=== PATIENT | male | born 1950 | race Caucasian/White ===

== ENCOUNTER 2016-07-04 19:59 | Emergency (ER) | payer MEDICARE, BC ==
[~2016-07-04] VITALS: Ht 182.9 cm; Wt 138.9 kg
[~2016-07-04 19:59] MED LIST: ADVI200C9; ASPI325T; ATOR20TA42; CARD4TAB2; HYZA100T4; XANA0.5T2
[2016-07-04 20:02] VITALS: BP 170/83; PULSE 96; RESP 16; TEMP 97.8; O2SAT 100
[2016-07-04] MEDS ORDERED: AMLO10TA2 PO (20:17)
[2016-07-04] MEDS ORDERED: ASPI81CH CHEW (20:17)
[2016-07-04] MEDS ORDERED: OLME1TAB5 PO (20:17)
[2016-07-04] MEDS ORDERED: MELO7.5T4 PO (20:17)
[2016-07-04] MEDS ORDERED: TETANUS/DIPHTHERIA TOXOID ADULT 0.5 ML VIAL IM ONE (20:30)
--- NOTE | 2016-07-04 20:37 | PD ---
HPI Chief Complaint: Laceration/Skin Injury Time Seen by Provider: 20:29 Travel History International Travel<30 days: No Contact w/Intl Traveler<30days: No Traveled to known affect area: No History of Present Illness HPI 66-year-old male presents to the emergency room for evaluation of a laceration to his left second finger that occurred yesterday afternoon. Patient was working on a boat when the jacquelin broke and the axle dropped on top of his finger. It crushed his finger between the axilla on the concrete. He states he was immediately able to bend the finger and doesn't believe that it is broken. He dressed the wound. This morning when his changed the dressing , she cannot get the bleeding to stop so she applied a pressure dressing. Patient has had rash or dressing in place since then. 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 Unknown last tetanus. Patient takes baby aspirin daily. PFSH Past Medical History Anxiety: Yes High Cholesterol: Yes Hypertension: Yes ?: Not Past Surgical History Neurologic Surgery: Yes (SPINAL SURGERY) Tonsillectomy: Yes Social History Alcohol Use: No Tobacco Use: No Substance Use: No Allergies-Medications (Allergen,Severity, Reaction): Coded Allergies: Penicillin (Verified Allergy, Severe, 07/04/16) Reported Meds & Prescriptions Reported Meds & Active Scripts Active Keflex (Cephalexin) 250 Mg Cap 500 Mg PO Q6H 10 Days Reported Aspirin 81 Mg Chew 81 Mg CHEW DAILY Meloxicam 7.5 Mg Tab 15 Mg PO DAILY Amlodipine (Amlodipine Besylate) 10 Mg Tab 10 Mg PO DAILY Olmesartan-Hydrochlorothiazide 20-12.5 Mg Tab Unknown Dose PO DAILY Review of Systems Except as stated in HPI: all other systems reviewed are Neg Physical Exam Narrative GENERAL: Well-nourished, well-developed male in no acute distress. Afebrile. Ambulatory. SKIN: Focused skin assessment warm/dry. There is a large 4 cm laceration/skin flap extending vertically on the dorsal second finger of the left hand. Nail bed is affected. The skin flap is extremely macerated. HEAD: Normocephalic. EYES: No scleral icterus. No injection or drainage. NECK: Supple, trachea midline. No JVD or lymphadenopathy. CARDIOVASCULAR: Regular rate and rhythm without murmurs, gallops, or rubs. RESPIRATORY: Breath sounds equal bilaterally. No accessory muscle use. EXTREMITY: Left second digit mildly tender to palpation. 2 point discrimination is not intact. The left second digit is moderately edematous. No bony tenderness to palpation. Capillary refill delayed. Data Data Last Documented VS Vital Signs Date Time Temp Pulse Resp B/P Pulse Ox O2 Delivery O2 Flow Rate FiO2 07/04/16 20:02 97.8 96 16 170/83 100 Orders Tetanus/Diphtheria Tox Adult (Tetanus/Di (07/04/16 20:30) Finger ([id number]) (07/04/16 ) Wound Care (07/04/16 21:26) MDM Medical Decision Making Medical Screen Exam Complete: Yes Emergency Medical Condition: Yes Medical Record Reviewed: Yes Differential Diagnosis Abrasion versus fracture versus crush injury Narrative Course 66-year-old right handed male presents to the emergency room for evaluation of a left second finger laceration/skin flap after crush injury that occurred 30 hours ago. Patient is past the safe laceration repair time period. Physical exam reveals a for similar skin flap on the left dorsal second finger. The nailbed is involved. The skin is extremely macerated from being dressed for the past several hours. Upon poking the skin with the needle, a small amount of blood can be seen. Patient has history of a sensation due to neck injury so 2 point discrimination is not currently intact. X-ray of the finger shows distal tuft fracture. Tetanus updated. I spoke to the hand surgeon recreation superintendent, Dr. Calderon, who recommends dry dressing, antibiotic prophylaxis, and follow up as needed. Patient was placed in a dressing in the emergency room and discharged with prescription for Keflex. He was told to follow up with a hand surgeon or return for worsening symptoms. He understands and agrees to plan. Diagnosis Primary Impression: Crushing injury of left index finger Qualified Code: S67.191A - Crushing injury of left index finger, initial encounter Referrals: James Godinez MD Primary Care Physician Patient Instructions: Crush Injury (ED), General Instructions Additional Instructions: Rest and drink plenty of fluids. Keep wound clean and dry. Apply triple antibiotic ointment daily. Take Keflex as directed, until gone. Apply ice to the affected area for 20 minutes at a time, as needed for pain and swelling. Follow-up with hand surgeon next week. Return to the emergency room for wound recheck in 1-2 days. Med/Other Pt SpecificInfo: Prescription(s) given Scripts Cephalexin (Keflex)250 Mg [id number] Mg PO Q6H 10 Days Ref 0 Prov:Lizet Hilliard MD 07/04/16 Disposition: 01 DISCHARGE HOME Condition: Stable Viki Castillo July 04, 2016 20:37
--- NOTE | 2016-07-04 20:59 | RADHPO ---
EXAM DATE/TIME: 07/04/2016 20:34 [facility] COMPARISON: No previous studies available for comparison. INDICATIONS : Multiple left hand, second digit lacerations. MEDICAL HISTORY : None. SURGICAL HISTORY : Tonsillectomy. ENCOUNTER: Initial ACUITY: 1 day PAIN SCORE: 0/10 LOCATION: Left upper extremity FINDINGS: Multiple views of the left second finger reveal a tuft fracture. Soft tissue swelling noted. No radio paque foreign body. CONCLUSION: Acute tuft fracture. Villa Enriquez Jr., MD on July 04, 2016 at 20:57 Board Certified Radiologist. This report was verified electronically.
[2016-07-04] MEDS ORDERED: CEPH-459 PO (21:25)
== END 2016-07-04 21:45 | disposition home or self-care (01) ==
LOC: PHEFT 19:59
DX: S67.191A Crushing injury of left index finger, initial encounter (principal); F41.9 Anxiety disorder, unspecified; I10 Essential (primary) hypertension; E78.00 Pure hypercholesterolemia, unspecified; W23.0XXA Caught, crushed, jammed, or pinched between moving objects, initial encounter; Z79.82 Long term (current) use of aspirin; Z23 Encounter for immunization; Z79.899 Other long term (current) drug therapy; Z88.0 Allergy status to penicillin
CPT/HCPCS: 73140; 90471; 90714

== ENCOUNTER 2017-10-31 18:06 | Inpatient (IN) ==
[2017-10-31] MEDS ORDERED: Sod Chloride 0.9% Inj 1,000 ML IV.SIG ONE (18:27)
[2017-10-31] MEDS ORDERED: HYDROmorphone PF Inj 0.5 MG/0.5 ML Syringe IV.PUSH SCH ×2 (18:30→21:45)
[2017-10-31 18:54] LABS: Baso # (Auto) 0.5 th/mm3 (0.0-0.2); Baso % (Auto) 3.6 % (0.0-2.0); Eos % (Auto) 0.3 % (0.0-4.0); Hematocrit 43.3 % (39.0-51.0); Hemoglobin 15.1 gm/dL (13.0-17.0); Lymph # (Auto) 1.6 th/mm3 (1.0-4.8); Lymph % (Auto) 12.4 % (9.0-44.0); Mean Corpuscular HGB Conc 34.7 % (32.0-36.0); Mean Corpuscular Hemoglobin 30.4 pg (27.0-34.0); Mean Corpuscular Volume 87.4 fL (80.0-100.0); Mean Platelet Volume 9.1 fL (7.0-11.0); Mono # (Auto) 0.9 th/mm3 (0.0-0.9); Mono % (Auto) 6.8 % (0.0-8.0); Neut # (Auto) 9.7 th/mm3 (1.8-7.7); Neut % (Auto) 76.9 % (16.0-70.0); Platelet Count 141 th/mm3 (150-450); Red Blood Count 4.95 mil/mm3 (4.50-5.90); Red Cell Distribution Width 13.5 % (11.6-17.2); White Blood Count 12.7 th/mm3 (4.0-11.0)
[2017-10-31 19:02] LABS: Chloride 110 meq/L (98-107); Potassium 4.1 meq/L (3.5-5.1); Sodium 143 meq/L (136-145)
[2017-10-31 19:05] LABS: Albumin 4.1 g/dL (3.4-5.0); Anion Gap 9 meq/L (5-15); Calcium 10.8 mg/dL (8.5-10.1); Carbon Dioxide 24.1 meq/L (21.0-32.0); Glucose,Random 113 mg/dL (74-106); Lipase 150 U/L (73-393)
[2017-10-31 19:06] LABS: Blood Urea Nitrogen 16 mg/dL (7-18)
[2017-10-31 19:07] LABS: Activated Partial Thrombo Time 23.5 sec (24.3-30.1); INR 1.1 Ratio; Prothrombin Time 10.8 sec (9.8-11.6)
[2017-10-31 19:08] LABS: Alanine Aminotransferase 37 U/L (12-78); Aspartate Aminotransferase 28 U/L (15-37)
[2017-10-31 19:09] LABS: Glomerular Filtration Rate 50 mL/min (>89)
[2017-10-31 19:10] LABS: Total Protein 7.3 g/dL (6.4-8.2)
[2017-10-31 19:11] LABS: Alkaline Phosphatase 65 U/L (45-117)
[2017-10-31] MEDS ORDERED: HYDROmorphone PF Inj 2 MG/ML Vial IV.PUSH ONE (19:45)
--- NOTE | 2017-10-31 19:45 | ED ---
HPI General Chief complaint: Abdominal Pain Stated complaint: Abd Pain Time Seen by Provider: 10/31/17 18:15 Source: patient and RN notes reviewed Mode of arrival: ambulatory History of Present Illness HPI narrative: 67yM presenting with abdominal pain. The patient states that around 2 PM he was sitting and watching TV when he began to have sudden-onset right lower quadrant/ midline abdominal pain which he describes as "like someone kicked me", constant, severe, non-radiating, not made better or worse by anything, associated with nausea and 1 episode of vomiting. He has a history of HTN, says he took his medications this morning (does not remember the names) , but arrived to the ED profoundly hypertensive (210s/110s). Denies fever or chills but admits to diaphoresis, denies chest pain, SOB, diarrhea, or dysuria. Family history non-contributory. No smoking history. Related Data Home Medications Medication Instructions Recorded Confirmed amlodipine 10 mg PO DAILY 10/31/17 10/31/17 aspirin 162 mg PO DAILY 10/31/17 10/31/17 meloxicam 15 mg PO DAILY 10/31/17 10/31/17 naproxen sodium [Aleve] 440 mg PO DAILY 10/31/17 10/31/17 Allergies Allergy/AdvReac Type Severity Reaction Status Date / Time penicillin G Allergy Severe Anaphylaxis Verified 10/31/17 18:37 Review of Systems ROS: all other systems reviewed are negative Constitutional Denies fever(s) Eyes Denies blurry vision ENT Denies nasal congestion Cardiovascular Denies chest pain Respiratory Denies cough Gastrointestinal Reports abdominal pain and Reports nausea Genitourinary Denies dysuria Musculoskeletal Denies back pain Neurologic Denies confusion Psychiatric Denies confusion PMFSH History History Provided By: Patient Medical History Medical History Hx of pilonidal cyst (Acute) Hypertension (Acute) Social History Social History Substance History: No History of Abuse Smoking Status: Never smoker How Often Do You Have a Drink Containing Alcohol: Monthly or less Recent Travel in [facility] within the Last 8 Weeks: No Recent Out of Country Travel within the Last 8 Weeks: No Exam Const Other: Appears uncomfortable [facility] Head: normocephalic and atraumatic Face and sinus: normal facial exam Eyes General: appearance normal, both eyes and all related structures Pupils: PERRL Chest Chest: normal inspection of the chest Resp Effort & Inspection: normal respiratory effort Auscultation: no rhonchi and no wheezes Cardio Rate: regular rate Rhythm: regular rhythm GI Other: Obese, soft, mild RUQ/ RLQ tenderness, no guarding or rebound Unable to visualize aorta with bedside US due to overlying bowel gas Skin General: no rashes or lesions noted Neuro General: alert, awake, oriented x3 and no focal motor deficits Psych Affect: normal affect Course Initial Documented Vital Signs Temperature 98.3 F 10/31/17 18:08 Pulse Rate 107 H 10/31/17 18:08 Respiratory Rate 20 10/31/17 18:08 Blood Pressure 214/120 H 10/31/17 18:08 Pulse Oximetry 97 10/31/17 18:08 Last Documented Vital Signs Temperature 98.3 F 10/31/17 18:08 Pulse Rate 96 H 10/31/17 19:50 Respiratory Rate 18 10/31/17 19:50 Blood Pressure 184/92 H 10/31/17 19:50 Pulse Oximetry 98 10/31/17 19:50 Medical Decision Making [facility] Narrative Medical decision making narrative: Assessment: 67yM presenting with abdominal pain and profound hypertension Plan: Pain control EKG and monitor Labs CTA aorta Addendum: Patient found to have hydronephrosis secondary to 5 mm right UVJ kidney stone, creat 1.4 (previous labs from 2006 show creat around 1.0). Patient has received 3 rounds of IV dilaudid but still continues to have pain; he will need continued IV pain control, IV hydration, and re-evaluation. Case discussed with Dr. Contreras of [facility]. Medical Screen Exam Complete: Yes Emergency Medical Condition: Yes Differential Diagnosis Differential Diagnosis: Differential diagnosis includes, but is not limited to: AAA, aortic dissection, appendicitis, colitis, pancreatitis, diverticulitis, hypertensive urgency, [place] Medical Records Medical records reviewed: Yes I reviewed the patient's medical records. Lab Data Result diagrams: 10/31/17 18:48 10/31/17 18:48 Lab Results 10/31/17 10/31/17 10/31/17 Range/Units 18:48 18:48 18:48 CBC w Diff Auto diff final WBC 12.7 H (4.0-11.0) th/mm3 RBC 4.95 (4.50-5.90) mil/mm3 Hgb 15.1 (13.0-17.0) gm/dL Hct 43.3 (39.0-51.0) % MCV 87.4 (80.0-100.0) fL MCH 30.4 (27.0-34.0) pg MCHC 34.7 (32.0-36.0) % RDW 13.5 (11.6-17.2) % Plt Count 141 L (150-450) th/mm3 MPV 9.1 (7.0-11.0) fL Neut % (Auto) 76.9 H (16.0-70.0) % Lymph % (Auto) 12.4 (9.0-44.0) % [place] % (Auto) 6.8 (0.0-8.0) % Eos % (Auto) 0.3 (0.0-4.0) % Baso % (Auto) 3.6 H (0.0-2.0) % Neut # (Auto) 9.7 H (1.8-7.7) th/mm3 Lymph # (Auto) 1.6 (1.0-4.8) th/mm3 [place] # (Auto) 0.9 (0.0-0.9) th/mm3 Eos # (Auto) 0.0 (0.0-0.4) th/mm3 Baso # (Auto) 0.5 H (0.0-0.2) th/mm3 WBC Differential . Differential Comment . PT 10.8 (9.8-11.6) sec INR 1.1 Ratio APTT 23.5 L (24.3-30.1) sec Sodium 143 (136-145) meq/L Potassium 4.1 (3.5-5.1) meq/L Chloride 110 H (98-107) meq/L Carbon Dioxide 24.1 (21.0-32.0) meq/L Anion Gap 9 (5-15) meq/L BUN 16 (7-18) mg/dL Creatinine 1.40 H (0.60-1.30) mg/dL Estimated GFR 50 L (>89) mL/min Random Glucose 113 H (74-106) mg/dL Lactic Acid (0.4-2.0) mmol/L Calcium 10.8 H (8.5-10.1) mg/dL Total Bilirubin 0.8 (0.2-1.0) mg/dL AST 28 (15-37) U/L ALT 37 (12-78) U/L Alkaline Phosphatase 65 (45-117) U/L Troponin I Less than 0.02 L (0.02-0.05) ng/mL Total Protein 7.3 (6.4-8.2) g/dL Albumin 4.1 (3.4-5.0) g/dL Lipase 150 (73-393) U/L Blood Type Blood Type Recheck Antibody Screen 10/31/17 10/31/17 Range/Units 18:48 18:48 CBC w Diff WBC (4.0-11.0) th/mm3 RBC (4.50-5.90) mil/mm3 Hgb (13.0-17.0) gm/dL Hct (39.0-51.0) % MCV (80.0-100.0) fL MCH (27.0-34.0) pg MCHC (32.0-36.0) % RDW (11.6-17.2) % Plt Count (150-450) th/mm3 MPV (7.0-11.0) fL Neut % (Auto) (16.0-70.0) % Lymph % (Auto) (9.0-44.0) % [place] % (Auto) (0.0-8.0) % Eos % (Auto) (0.0-4.0) % Baso % (Auto) (0.0-2.0) % Neut # (Auto) (1.8-7.7) th/mm3 Lymph # (Auto) (1.0-4.8) th/mm3 [place] # (Auto) (0.0-0.9) th/mm3 Eos # (Auto) (0.0-0.4) th/mm3 Baso # (Auto) (0.0-0.2) th/mm3 WBC Differential Differential Comment PT (9.8-11.6) sec INR Ratio APTT (24.3-30.1) sec Sodium (136-145) meq/L Potassium (3.5-5.1) meq/L Chloride (98-107) meq/L Carbon Dioxide (21.0-32.0) meq/L Anion Gap (5-15) meq/L BUN (7-18) mg/dL Creatinine (0.60-1.30) mg/dL Estimated GFR (>89) mL/min Random Glucose (74-106) mg/dL Lactic Acid 1.9 (0.4-2.0) mmol/L Calcium (8.5-10.1) mg/dL Total Bilirubin (0.2-1.0) mg/dL AST (15-37) U/L ALT (12-78) U/L Alkaline Phosphatase (45-117) U/L Troponin I (0.02-0.05) ng/mL Total Protein (6.4-8.2) g/dL Albumin (3.4-5.0) g/dL Lipase (73-393) U/L Blood Type O Positive Blood Type Recheck Required Antibody Screen Negative Imaging Data Radiologist's impression: Thoracic Aorta CT 10/31/17 18:27 CONCLUSION: 1. There is hydronephrosis in the right kidney due to an approximate 4 to 5 mm right UVJ stone. 2. Cholelithiasis and additional stones in both kidneys. ECG Data Attestation: I personally reviewed and interpreted this ECG as follows: Interpretation: Rate: 103 BPM Rhythm: Sinus [place]: Normal Intervals: LAFB, QTc 412 ms Q waves: III, aVF T waves: Upright, no inversions ST segments: No elevations or depressions Impression: Non-specific EKG, no significant changes as compared to EKG from . Discharge Plan Discharge Disposition Patient Disposition: 30 Still Patient Discharge Condition Condition: Stable Discharge Details Diagnosis: Nephrolithiasis, Hydronephrosis, Acute kidney injury, Intractable pain Physicians Team ED Provider: Nita Bolanos Primary Care Provider: Sonu Miguel Rxs /Orders / Referrals /Forms Prescriptions: No Action meloxicam 15 mg Tablet 15 mg PO DAILY RF: 0 amlodipine 10 mg Tablet 10 mg PO DAILY RF: 0 naproxen sodium [Aleve] 220 mg Tablet 440 mg PO DAILY RF: 0 aspirin 81 mg Tablet,Chewable 162 mg PO DAILY RF: 0 Status ED Status: With Doctor
--- NOTE | 2017-10-31 20:36 | CT ---
EXAM DATE: 10/31/2017 8:23 PM EDT AGE/SEX: 67 years / Male INDICATIONS: Abdominal pain, hypertensive. CLINICAL DATA: This is the patient's initial encounter. Patient reports that signs and symptoms have been present for 1 day and indicates a pain score of 8/10. MEDICAL/SURGICAL HISTORY: Hypertension. Pilonidal cyst. . Spinal surgery. RADIATION DOSE: 22.57 CTDI (mGy) COMPARISON: . TECHNIQUE: Volumetric scanning was performed using a multi-row detector CT scanner during bolus infu subha of 99 ml Omnipaque 350 (iohexol) nonionic water-soluble contrast as a single exam dose. The da ta was post processed with a variety of visualization algorithms including full volume maximum intens ity projection, multi-planar sliding thin slab reformation, curved planar reformation, and surface re ndering techniques. Using automated exposure control and adjustment of the mA and/or kV according to patient size, radiation dose was kept as low as reasonably achievable to obtain optimal diagnostic q uality images. DICOM format image data is available electronically for review and comparison. FINDINGS: Coronary artery calcifications are seen typically seen with coronary artery disease and clinical nikolay elation and evaluation is suggested. Approximate 2.2 cm low attenuating lesion segment 4 of the liver most likely a cyst. There are 2 separate stones in the right kidney the larger one measures 5 mm in size. There is slight hydronephrosis in the right kidney due to an approximate 5 mm stone in the righ t UVJ. There are also 2 small stones in the left kidney the larger one measures 5 to 6 mm in size. Th ere are degenerative changes and possible disc bulge involving lower lumbosacral spine mainly at L4-5 and L5-S1 not adequately characterized. There is no evidence for aortic dissection. There is no yves dence for aneurysm. There is mild atherosclerotic disease at the origin of the celiac artery and the SMA appears completely intact. Gallstones are present within the gallbladder without signs of cholecystitis for technique. CONCLUSION: 1. There is hydronephrosis in the right kidney due to an approximate 4 to 5 mm right UVJ stone. 2. Cholelithiasis and additional stones in both kidneys. Electronically signed by: Gregory Khan MD 10/31/2017 8:35 PM EDT
[2017-10-31] MEDS ORDERED: HYDROmorphone PF Inj 2 MG/ML Vial IV.PUSH PRN (23:05)
[2017-10-31] MEDS ORDERED: Acetaminophen 325 MG Tablet PO PRN (23:06)
[2017-10-31] MEDS ORDERED: Bisacodyl 10 MG Supp RECTAL PRN (23:06)
[2017-10-31 23:11] LABS: Bilirubin,Urine Negative (Negative); Clarity,Urine Cloudy (Clear); Color,Urine Yellow (Yellw/Straw); Glucose,Urine (UA) Negative (Negative); Leukocyte Esterase,Urine Negative (Negative); Nitrite,Urine Negative (Negative); Urobilinogen,Urine 0.2 mg/dL (Less than 2)
[2017-10-31 23:18] LABS: Amorphous Sediment,Urine Many /hpf; RBC,Urine 0-3 /hpf (0-3); Squamous Epithelial Cell,Urine 0-5 /hpf (0-5); WBC,Urine 0-5 /hpf (0-5)
[2017-11-01] MEDS: Sod Chloride 0.9% Inj 1,000 ML IV.CONT SCH ×2 (00:45→11:40)
[2017-11-01] MEDS ORDERED: HYDROmorphone PF Inj 2 MG/ML Vial IV.PUSH PRN (06:22)
[2017-11-01] MEDS ORDERED: hydrALAZINE HCl Inj 20 MG/ML Vial IV.PUSH PRN (06:24)
[2017-11-01 07:17] LABS: Baso % (Auto) 0.1 % (0.0-2.0); Eos % (Auto) 0.4 % (0.0-4.0); Hematocrit 41.3 % (39.0-51.0); Hemoglobin 13.9 gm/dL (13.0-17.0); Lymph # (Auto) 1.5 th/mm3 (1.0-4.8); Lymph % (Auto) 16.3 % (9.0-44.0); Mean Corpuscular HGB Conc 33.6 % (32.0-36.0); Mean Corpuscular Hemoglobin 28.9 pg (27.0-34.0); Mean Corpuscular Volume 85.9 fL (80.0-100.0); Mean Platelet Volume 8.8 fL (7.0-11.0); Mono # (Auto) 0.9 th/mm3 (0.0-0.9); Mono % (Auto) 9.7 % (0.0-8.0); Neut # (Auto) 6.9 th/mm3 (1.8-7.7); Neut % (Auto) 73.5 % (16.0-70.0); Platelet Count 147 th/mm3 (150-450); Red Cell Distribution Width 14.2 % (11.6-17.2); White Blood Count 9.3 th/mm3 (4.0-11.0)
[2017-11-01 07:28] LABS: Chloride 110 meq/L (98-107); Potassium 3.9 meq/L (3.5-5.1); Sodium 144 meq/L (136-145)
[2017-11-01 08:03] LABS: Alanine Aminotransferase 32 U/L (12-78); Albumin 3.6 g/dL (3.4-5.0); Alkaline Phosphatase 60 U/L (45-117); Anion Gap 7 meq/L (5-15); Aspartate Aminotransferase 26 U/L (15-37); Blood Urea Nitrogen 17 mg/dL (7-18); Calcium 9.7 mg/dL (8.5-10.1); Carbon Dioxide 27.3 meq/L (21.0-32.0); Glomerular Filtration Rate 60 mL/min (>89); Glucose,Random 107 mg/dL (74-106); Total Protein 6.8 g/dL (6.4-8.2)
[2017-11-01 08:42] VITALS: BP 171/91; PULSE 91; O2SAT 97
[2017-11-01] MEDS ORDERED: Senna/Docusate Sodium 8.6/50 MG Tablet PO SCH (09:00)
[2017-11-01] MEDS ORDERED: amLODIPine 10 MG Tablet PO SCH (09:00)
--- NOTE | 2017-11-01 11:36 | ECG ---
Date Performed: 10/31/2017 Time Performed: 18:33:11 PTAGE: 67 years EKG: SINUS TACHYCARDIA POSSIBLE LEFT ATRIAL ENLARGEMENT LEFT ANTERIOR FASCICULAR BLOCK ABNORMAL ECG Since the PREVIOUS TRACING , no significant change noted PREVIOUS TRACIN12/02/2005 06.30 DOCTOR: Bea Her Interpretating Date/Time 11/01/2017 11:35:33
--- NOTE | 2017-11-01 12:15 | P.CONURO ---
History of Present Illness Service: Consult date: 11/01/17 Requesting Physician: Rob Joe Reason for Consult: Obstructing right ureteral calculus Primary Care Provider: Sonu Miguel DO History of Present Illness: 67-year-old gentleman with history of nephrolithiasis who presented to the emergency room with acute onset right flank pain. Workup included a CT scan stone protocol that demonstrated a 4 to 5 mm right ureterovesical junction calculus with hydronephrosis. Also noted on the CT scan were bilateral renal calculi measuring up to 5 mm in size. Patient is status post spontaneous passage of a renal calculus approximately 10 years ago. At the time of consultation, the patient reported that he was pain-free and not had received any analgesic medication since yesterday night. He has been straining his urine and no stone has yet been retrieved. He denies dysuria or gross hematuria Review of Systems All other systems reviewed negative except as stated in HPI [facility] - History History Provided By: Patient - Medical History Medical History: Medical History (Last Updated 10/31/17 @ 19:42 by Nita Bolanos DO) Hx of pilonidal cyst Hypertension - Tobacco History Second Hand Smoke Exposure: No Tobacco Use In Past 30 Days: Yes Smoking Status: Never smoker Tobacco Type: Cigarettes - Alcohol History How Often Do You Have a Drink Containing Alcohol: Never - Substance Use History Substance History: No History of Abuse - Travel History Recent Travel in the [place] Within the Last 8 Weeks: No Recent Travel Out of the Country Within the Last 8 Weeks: No - Immunization History Tetanus Immunization: <5 Years Hx Influenza Vaccine This Season: No Medications and Allergies Active Medications: Active Medications Acetaminophen (Tylenol) 650 mg PO Q4H PRN PRN Reason: Temp > 100.4 Al Hydroxide/Mg Hydroxide (Milk Of [place] Liq) 30 ml PO Q12H PRN PRN Reason: Mild Constipation Amlodipine Besylate (Norvasc) 10 mg PO DAILY [facility] Last Admin: 11/01/17 08:16 Dose: 10 mg Bisacodyl (Dulcolax Supp) 10 mg RECTAL DAILY PRN PRN Reason: SEVERE CONSITIPATION Clonidine HCl (Catapres) 0.1 mg PO Q6H PRN PRN Reason: SEE LABEL COMMENTS Hydralazine HCl (Apresoline Inj) 10 mg IV.PUSH Q6H PRN PRN Reason: SEE LABEL COMMENTS Hydromorphone HCl (Dilaudid Pf Inj) 0.5 mg IV.PUSH ONCE LEILANI Hydromorphone HCl (Dilaudid Pf Inj) 1 mg IV.PUSH Q4H PRN PRN Reason: PAIN 6-10 Hydromorphone HCl (Dilaudid Pf Inj) 0.5 mg IV.PUSH Q4H PRN PRN Reason: PAIN SCALE 1 TO 5 Sodium Chloride (Ns Inj) 1,000 mls @ 100 mls/hr IV.CONT .Q10H [facility] Last Admin: 11/01/17 11:40 Dose: 100 mls/hr Lactulose (Lactulose Liq) 30 ml PO DAILY PRN PRN Reason: SEVERE CONSITIPATION Ondansetron HCl (Zofran Inj) 4 mg IV.PUSH Q6H PRN PRN Reason: NAUSEA OR VOMITING Senna/Docusate Sodium (Diamante-Colace) 1 tab PO BID [facility] Last Admin: 11/01/17 08:16 Dose: 1 tab Sennosides (Senokot) 17.2 mg PO Q12H PRN PRN Reason: Moderate Constipation Sodium Chloride (Ns Flush) 2 ml IV.FLUSH PRN PRN PRN Reason: FLUSH AFTER USING IV ACCESS Tamsulosin HCl (Flomax) 0.4 mg PO DAILY [facility] Last Admin: 11/01/17 08:16 Dose: 0.4 mg Allergies Allergy/AdvReac Type Severity Reaction Status Date / Time penicillin G Allergy Severe Anaphylaxis Verified 10/31/17 18:37 Home Medications Medication Instructions Recorded Confirmed Type amlodipine 10 mg PO DAILY 10/31/17 10/31/17 History aspirin 162 mg PO DAILY 10/31/17 10/31/17 History meloxicam 15 mg PO DAILY 10/31/17 10/31/17 History naproxen sodium [Aleve] 440 mg PO DAILY 10/31/17 10/31/17 History atorvastatin 20 mg PO DAILY 11/01/17 11/01/17 History Physical Exam Vital Signs - 24 hr 10/31/17 18:08 10/31/17 19:50 10/31/17 23:29 Temperature 98.3 F Pulse Rate 107 H 96 H 87 Respiratory Rate 20 18 18 Blood Pressure 214/120 H 184/92 H 178/88 H Pulse Oximetry 97 98 98 11/01/17 00:00 11/01/17 08:00 Temperature 98.2 F 96.5 F L Pulse Rate 93 H 91 H Respiratory Rate 18 20 Blood Pressure 171/83 H 171/91 H Pulse Oximetry 98 97 Physical Exam: GENERAL: This is a well-nourished, well-developed patient, in no apparent distress. SKIN: No rashes, ecchymoses or lesions. Cool and dry. HEAD: Atraumatic. Normocephalic. No temporal or scalp tenderness. EYES: Pupils equal round and reactive. Extraocular motions intact. No scleral icterus. No injection or drainage. ENT: Nose without bleeding, purulent drainage or septal hematoma. Throat without erythema, tonsillar hypertrophy or exudate. Uvula midline. Airway patent. NECK: Trachea midline. No JVD or lymphadenopathy. Supple, nontender, no meningeal signs. CARDIOVASCULAR: Regular rate and rhythm without murmurs, gallops, or rubs. RESPIRATORY: Clear to auscultation. Breath sounds equal bilaterally. No wheezes , rales, or rhonchi. GASTROINTESTINAL: Abdomen soft, non-tender, nondistended. No hepato-splenomegaly , or palpable masses. No guarding. GENITOURINARY: No CVA tenderness, bladder not distended MUSCULOSKELETAL: Extremities without clubbing, cyanosis, or edema. No joint tenderness, effusion, or edema noted. No calf tenderness. Negative Homans sign bilaterally. NEUROLOGICAL: Awake and alert. Cranial nerves II through XII intact. Motor and sensory grossly within normal limits. Five out of 5 muscle strength in all muscle groups. Normal speech. Laboratory Results - last 24 hr 10/31/17 10/31/17 10/31/17 18:48 18:48 18:48 CBC w Diff Auto diff final WBC 12.7 H RBC 4.95 Hgb 15.1 Hct 43.3 MCV 87.4 MCH 30.4 MCHC 34.7 RDW 13.5 Plt Count 141 L MPV 9.1 Neut % (Auto) 76.9 H Lymph % (Auto) 12.4 [place] % (Auto) 6.8 Eos % (Auto) 0.3 Baso % (Auto) 3.6 H Neut # (Auto) 9.7 H Lymph # (Auto) 1.6 [place] # (Auto) 0.9 Eos # (Auto) 0.0 Baso # (Auto) 0.5 H WBC Differential . Differential Comment . PT 10.8 INR 1.1 APTT 23.5 L Sodium 143 Potassium 4.1 Chloride 110 H Carbon Dioxide 24.1 Anion Gap 9 BUN 16 Creatinine 1.40 H Estimated GFR 50 L Random Glucose 113 H Lactic Acid Calcium 10.8 H Total Bilirubin 0.8 AST 28 ALT 37 Alkaline Phosphatase 65 Troponin I Less than 0.02 L Total Protein 7.3 Albumin 4.1 Lipase 150 Urine Color Urine Clarity Urine pH Ur Specific [place] Urine Protein Urine Glucose (UA) Urine Ketones Urine Occult Blood Urine Nitrate Urine Bilirubin Urine Urobilinogen Ur Leukocyte Esterase Urine RBC Urine WBC Ur Squamous Epith Cells Amorphous Sediment Micro UA Comment Ur Microscopic Review Urine Culture Comments Blood Type Blood Type Recheck Antibody Screen 10/31/17 10/31/17 10/31/17 18:48 18:48 22:59 CBC w Diff WBC RBC Hgb Hct MCV MCH MCHC RDW Plt Count MPV Neut % (Auto) Lymph % (Auto) [place] % (Auto) Eos % (Auto) Baso % (Auto) Neut # (Auto) Lymph # (Auto) [place] # (Auto) Eos # (Auto) Baso # (Auto) WBC Differential Differential Comment PT INR APTT Sodium Potassium Chloride Carbon Dioxide Anion Gap BUN Creatinine Estimated GFR Random Glucose Lactic Acid 1.9 Calcium Total Bilirubin AST ALT Alkaline Phosphatase Troponin I Total Protein Albumin Lipase Urine Color Yellow Urine Clarity Cloudy H Urine pH 7.0 Ur Specific [place] 1.010 Urine Protein Negative Urine Glucose (UA) Negative Urine Ketones Negative Urine Occult Blood Trace Urine Nitrate Negative Urine Bilirubin Negative Urine Urobilinogen 0.2 Ur Leukocyte Esterase Negative Urine RBC 0-3 Urine WBC 0-5 Ur Squamous Epith Cells 0-5 Amorphous Sediment Many H Micro UA Comment Culture not ind Ur Microscopic Review Microscopic reviewed Urine Culture Comments Culture not ind Blood Type O Positive Blood Type Recheck Required Antibody Screen Negative 11/01/17 11/01/17 07:00 07:00 CBC w Diff Auto diff final WBC 9.3 RBC 4.80 Hgb 13.9 Hct 41.3 MCV 85.9 MCH 28.9 MCHC 33.6 RDW 14.2 Plt Count 147 L MPV 8.8 Neut % (Auto) 73.5 H Lymph % (Auto) 16.3 [place] % (Auto) 9.7 H Eos % (Auto) 0.4 Baso % (Auto) 0.1 Neut # (Auto) 6.9 Lymph # (Auto) 1.5 [place] # (Auto) 0.9 Eos # (Auto) 0.0 Baso # (Auto) 0.0 WBC Differential . Differential Comment . PT INR APTT Sodium 144 Potassium 3.9 Chloride 110 H Carbon Dioxide 27.3 Anion Gap 7 BUN 17 Creatinine 1.20 Estimated GFR 60 L Random Glucose 107 H Lactic Acid Calcium 9.7 D Total Bilirubin 1.0 AST 26 ALT 32 Alkaline Phosphatase 60 Troponin I Total Protein 6.8 Albumin 3.6 Lipase Urine Color Urine Clarity Urine pH Ur Specific [place] Urine Protein Urine Glucose (UA) Urine Ketones Urine Occult Blood Urine Nitrate Urine Bilirubin Urine Urobilinogen Ur Leukocyte Esterase Urine RBC Urine WBC Ur Squamous Epith Cells Amorphous Sediment Micro UA Comment Ur Microscopic Review Urine Culture Comments Blood Type Blood Type Recheck Antibody Screen Result Diagrams: 11/01/17 07:00 11/01/17 07:00 Imaging: ITS Impressions Thoracic Aorta CT 10/31/17 18:27 CONCLUSION: 1. There is hydronephrosis in the right kidney due to an approximate 4 to 5 mm right UVJ stone. 2. Cholelithiasis and additional stones in both kidneys. Assessment and Plan - Assessment (1) Ureteral calculus, right Code(s): N20.1 - Calculus of ureter Status: Acute (2) Renal calculus, bilateral Code(s): N20.0 - Calculus of kidney Status: Acute - Plan Urologic impression: 1. Obstructing 4-5 mm right distal ureteral calculus which may have already passed or is likely to pass 2. Bilateral renal calculi measuring up to 5 mm Recommendations: 1. Urologically stable for discharge home 2. Strain all urine 3. Continue with tamsulosin 0.4 mg by mouth daily until stone passed 4. Continue with oral analgesic medication 5. Office follow-up in approximately 1 week for reevaluation [phone].
--- NOTE | 2017-11-01 12:24 | P.HP ---
History of Present Illness Primary Care Physician: Sonu Miguel DO Chief Complaint: Abdominal pain History of Present Illness: This is a 67-year-old male with a history of hypertension. He presents to the emergency department because of abdominal pain which was acute in onset located in the right lower quadrant described as constant severe non-radiating with no precipitating or alleviating factors associated with nausea and vomiting 1. In the emergency department abdominal CT showed hydronephrosis secondary to 5 mm right UVJ kidney stone. Patient was then advised further hospitalization because of intractable pain required multiple doses of IV Dilaudid as well as IV hydration and further workup of obstructive uropathy. Per patient since he arrived on the floor, he has no recurrence of abdominal pain, nausea and vomiting. He has been voiding without difficulty. Patient was evaluated by urology and recommended discharge with Flomax and follow-up in 1 week. Also noted to have uncontrolled hypertension likely secondary to pain. Patient on Norvasc. He also has acute kidney injury improved with IV hydration. Patient advised to discontinue NSAIDs which he takes for knee arthritis. At this time, he has no complaints and wants to go home. All other systems reviewed negative. Inpatient Certification: I certify that the inpatient services were ordered in accordance with Medicare regulations governing the order. This includes certification that hospital inpatient services are reasonable and necessary and in the case of services not specified as inpatient-only under 42 CFR 419.22(n), that they are appropriately provided as inpatient services in accordance to with the 2-midnight benchmark under 43 CFR 412.3(e) Estimated Total Length of Stay (Days): 2 Plans for Post Hospital Care: Not yet determined Review of Systems All other systems reviewed negative except as stated in HPI [facility] - History History Provided By: Patient - Medical History Medical History: Medical History (Last Reviewed 11/01/17 @ 13:09 by Rob Joe MD) Hx of pilonidal cyst Hypertension - Surgical History Surgical History: Surgical History (Last Updated 11/01/17 @ 13:10 by Rob Joe MD) History of surgical removal of pilonidal cyst - Family History Family History: Family History (Last Updated 11/01/17 @ 13:09 by Rob Joe MD) Other Family history of acute myocardial infarction - Tobacco History Second Hand Smoke Exposure: No Tobacco Use In Past 30 Days: Yes Smoking Status: Never smoker Tobacco Type: Cigarettes - Alcohol History How Often Do You Have a Drink Containing Alcohol: Never - Substance Use History Substance History: No History of Abuse - Travel History Recent Travel in the [place] Within the Last 8 Weeks: No Recent Travel Out of the Country Within the Last 8 Weeks: No - Immunization History Tetanus Immunization: <5 Years Hx Influenza Vaccine This Season: No Medications and Allergies Active Medications: Active Medications Acetaminophen (Tylenol) 650 mg PO Q4H PRN PRN Reason: Temp > 100.4 Al Hydroxide/Mg Hydroxide (Milk Of Magnesia Liq) 30 ml PO Q12H PRN PRN Reason: Mild Constipation Amlodipine Besylate (Norvasc) 10 mg PO DAILY [facility] Last Admin: 11/01/17 08:16 Dose: 10 mg Bisacodyl (Dulcolax Supp) 10 mg RECTAL DAILY PRN PRN Reason: SEVERE CONSITIPATION Clonidine HCl (Catapres) 0.1 mg PO Q6H PRN PRN Reason: SEE LABEL COMMENTS Hydralazine HCl (Apresoline Inj) 10 mg IV.PUSH Q6H PRN PRN Reason: SEE LABEL COMMENTS Hydromorphone HCl (Dilaudid Pf Inj) 0.5 mg IV.PUSH ONCE LEILANI Hydromorphone HCl (Dilaudid Pf Inj) 1 mg IV.PUSH Q4H PRN PRN Reason: PAIN 6-10 Hydromorphone HCl (Dilaudid Pf Inj) 0.5 mg IV.PUSH Q4H PRN PRN Reason: PAIN SCALE 1 TO 5 Lactulose (Lactulose Liq) 30 ml PO DAILY PRN PRN Reason: SEVERE CONSITIPATION Ondansetron HCl (Zofran Inj) 4 mg IV.PUSH Q6H PRN PRN Reason: NAUSEA OR VOMITING Senna/Docusate Sodium (Diamante-Colace) 1 tab PO BID [facility] Last Admin: 11/01/17 08:16 Dose: 1 tab Sennosides (Senokot) 17.2 mg PO Q12H PRN PRN Reason: Moderate Constipation Sodium Chloride (Ns Flush) 2 ml IV.FLUSH PRN PRN PRN Reason: FLUSH AFTER USING IV ACCESS Spironolactone (Aldactone) 25 mg PO DAILY [facility] Tamsulosin HCl (Flomax) 0.4 mg PO DAILY [facility] Last Admin: 11/01/17 08:16 Dose: 0.4 mg Allergies Allergy/AdvReac Type Severity Reaction Status Date / Time penicillin G Allergy Severe Anaphylaxis Verified 10/31/17 18:37 Home Medications Medication Instructions Recorded Confirmed Type amlodipine 10 mg PO DAILY 10/31/17 10/31/17 History aspirin 162 mg PO DAILY 10/31/17 10/31/17 History atorvastatin 20 mg PO DAILY 11/01/17 11/01/17 History Exam Vital signs: Vital Signs 10/31/17 18:08 10/31/17 19:50 10/31/17 23:29 Temperature 98.3 F Pulse Rate 107 H 96 H 87 Respiratory Rate 20 18 18 Blood Pressure 214/120 H 184/92 H 178/88 H Pulse Oximetry 97 98 98 11/01/17 00:00 11/01/17 08:00 Temperature 98.2 F 96.5 F L Pulse Rate 93 H 91 H Respiratory Rate 18 20 Blood Pressure 171/83 H 171/91 H Pulse Oximetry 98 97 Intake & Output 10/31/17 11/01/17 11/01/17 18:59 06:59 18:59 Intake Total 1000 / 1000 1000 / 1000 Balance 1000 / 1000 1000 / 1000 Weight 140 kg 148.6 kg Intake: IV 1000 / 1000 1000 / 1000 NS Inj 1,000 ML @ 100 mls/hr IV 1000 / 1000 .CONT .Q10H LEIL[facility] Rx#:[id number] NS Inj 1,000 ML @ Wide Open IV. 1000 / 1000 SIG BOLUS ONE Rx#:[id number] Other: # Voids 2 Date of Last Bowel Movement 10/31/17 Weight On Admission 148.6 kg Narrative: GENERAL: Well-developed, obese in no distress SKIN: Warm and dry. HEAD: Atraumatic. Normocephalic. EYES: Pupils equal and round. No scleral icterus. No injection or drainage. ENT: No nasal bleeding or discharge. Mucous membranes pink and moist. NECK: Trachea midline. No JVD. CARDIOVASCULAR: Regular rate and rhythm. RESPIRATORY: No accessory muscle use. Clear to auscultation. Breath sounds equal bilaterally. GASTROINTESTINAL: Abdomen soft, non-tender, nondistended. MUSCULOSKELETAL: Extremities without clubbing, cyanosis with bilateral lower extremity pitting edema. No obvious deformities. No CVA tenderness NEUROLOGICAL: Awake and alert. No obvious cranial nerve deficits. Motor grossly within normal limits. Five out of 5 muscle strength in the arms and legs. Normal speech. PSYCHIATRIC: Appropriate mood and affect; insight and judgment normal. Results - Labs CBC & Chem 7: 11/01/17 07:00 11/01/17 07:00 Labs: Laboratory Results - last 24 hr 10/31/17 10/31/17 10/31/17 18:48 18:48 18:48 CBC w Diff Auto diff final WBC 12.7 H RBC 4.95 Hgb 15.1 Hct 43.3 MCV 87.4 MCH 30.4 MCHC 34.7 RDW 13.5 Plt Count 141 L MPV 9.1 Neut % (Auto) 76.9 H Lymph % (Auto) 12.4 [place] % (Auto) 6.8 Eos % (Auto) 0.3 Baso % (Auto) 3.6 H Neut # (Auto) 9.7 H Lymph # (Auto) 1.6 [place] # (Auto) 0.9 Eos # (Auto) 0.0 Baso # (Auto) 0.5 H WBC Differential . Differential Comment . PT 10.8 INR 1.1 APTT 23.5 L Sodium 143 Potassium 4.1 Chloride 110 H Carbon Dioxide 24.1 Anion Gap 9 BUN 16 Creatinine 1.40 H Estimated GFR 50 L Random Glucose 113 H Lactic Acid Calcium 10.8 H Total Bilirubin 0.8 AST 28 ALT 37 Alkaline Phosphatase 65 Troponin I Less than 0.02 L Total Protein 7.3 Albumin 4.1 Lipase 150 Urine Color Urine Clarity Urine pH Ur Specific [place] Urine Protein Urine Glucose (UA) Urine Ketones Urine Occult Blood Urine Nitrate Urine Bilirubin Urine Urobilinogen Ur Leukocyte Esterase Urine RBC Urine WBC Ur Squamous Epith Cells Amorphous Sediment Micro UA Comment Ur Microscopic Review Urine Culture Comments Blood Type Blood Type Recheck Antibody Screen 10/31/17 10/31/17 10/31/17 18:48 18:48 22:59 CBC w Diff WBC RBC Hgb Hct MCV MCH MCHC RDW Plt Count MPV Neut % (Auto) Lymph % (Auto) [place] % (Auto) Eos % (Auto) Baso % (Auto) Neut # (Auto) Lymph # (Auto) [place] # (Auto) Eos # (Auto) Baso # (Auto) WBC Differential Differential Comment PT INR APTT Sodium Potassium Chloride Carbon Dioxide Anion Gap BUN Creatinine Estimated GFR Random Glucose Lactic Acid 1.9 Calcium Total Bilirubin AST ALT Alkaline Phosphatase Troponin I Total Protein Albumin Lipase Urine Color Yellow Urine Clarity Cloudy H Urine pH 7.0 Ur Specific [place] 1.010 Urine Protein Negative Urine Glucose (UA) Negative Urine Ketones Negative Urine Occult Blood Trace Urine Nitrate Negative Urine Bilirubin Negative Urine Urobilinogen 0.2 Ur Leukocyte Esterase Negative Urine RBC 0-3 Urine WBC 0-5 Ur Squamous Epith Cells 0-5 Amorphous Sediment Many H Micro UA Comment Culture not ind Ur Microscopic Review Microscopic reviewed Urine Culture Comments Culture not ind Blood Type O Positive Blood Type Recheck Required Antibody Screen Negative 11/01/17 11/01/17 07:00 07:00 CBC w Diff Auto diff final WBC 9.3 RBC 4.80 Hgb 13.9 Hct 41.3 MCV 85.9 MCH 28.9 MCHC 33.6 RDW 14.2 Plt Count 147 L MPV 8.8 Neut % (Auto) 73.5 H Lymph % (Auto) 16.3 [place] % (Auto) 9.7 H Eos % (Auto) 0.4 Baso % (Auto) 0.1 Neut # (Auto) 6.9 Lymph # (Auto) 1.5 [place] # (Auto) 0.9 Eos # (Auto) 0.0 Baso # (Auto) 0.0 WBC Differential . Differential Comment . PT INR APTT Sodium 144 Potassium 3.9 Chloride 110 H Carbon Dioxide 27.3 Anion Gap 7 BUN 17 Creatinine 1.20 Estimated GFR 60 L Random Glucose 107 H Lactic Acid Calcium 9.7 D Total Bilirubin 1.0 AST 26 ALT 32 Alkaline Phosphatase 60 Troponin I Total Protein 6.8 Albumin 3.6 Lipase Urine Color Urine Clarity Urine pH Ur Specific [place] Urine Protein Urine Glucose (UA) Urine Ketones Urine Occult Blood Urine Nitrate Urine Bilirubin Urine Urobilinogen Ur Leukocyte Esterase Urine RBC Urine WBC Ur Squamous Epith Cells Amorphous Sediment Micro UA Comment Ur Microscopic Review Urine Culture Comments Blood Type Blood Type Recheck Antibody Screen - Imaging Impressions Thoracic Aorta CT 10/31/17 18:27 CONCLUSION: 1. There is hydronephrosis in the right kidney due to an approximate 4 to 5 mm right UVJ stone. 2. Cholelithiasis and additional stones in both kidneys. Caprini VTE Risk Assessment Caprini VTE Risk Assessment: Moderate/High Risk (score >= 2) Caprini Risk Assessment Model: Point Value = 1 Point Value = 2 Point Value = 3 Point Value = 5 Age 41-60 Minor surgery BMI > 25 kg/m2 Swollen legs Varicose veins or History of unexplained or recurrent spontaneous Oral contraceptives or hormone replacement Sepsis (< 1 month) Serious lung disease, including pneumonia (< 1 month) Abnormal pulmonary function Acute myocardial infarction Congestive heart failure (< 1 month) History of inflammatory bowel disease Medical patient at bed rest Age 61-74 Arthroscopic surgery Major open surgery (> 45 min) Laparoscopic surgery (> 45 min) Malignancy Confined to bed (> 72 hours) Immobilizing plaster cast Central venous access Age >= 75 History of VTE Family history of VTE Factor V Leiden Prothrombin [id number] Lupus anticoagulant Anticardiolipin antibodies Elevated serum homocysteine Heparin-induced thrombocytopenia Other congenital or acquired thrombophilia Stroke (< 1 month) Elective arthroplasty Hip, pelvis, or leg fracture Acute spinal cord injury (< 1 month) Prophylaxis Regimen: Total Risk Factor Score Risk Level Prophylaxis Regimen 0-1 Low Early ambulation 2 Moderate Order ONE of the following: *Sequential Compression Device (SCD) *Heparin 5000 units SQ BID 3-4 Higher Order ONE of the following medications: *Heparin 5000 units SQ TID *Enoxaparin/Lovenox 40 mg SQ daily (WT < 150 kg, CrCl > 30 mL/min) *Enoxaparin/Lovenox 30 mg SQ daily (WT < 150 kg, CrCl > 10-29 mL/min) *Enoxaparin/Lovenox 30 mg SQ BID (WT < 150 kg, CrCl > 30 mL/min) AND/OR *Sequential Compression Device (SCD) 5 or more Highest Order ONE of the following medications: *Heparin 5000 units SQ TID (Preferred with Epidurals) *Enoxaparin/Lovenox 40 mg SQ daily (WT < 150 kg, CrCl > 30 mL/min) *Enoxaparin/Lovenox 30 mg SQ daily (WT < 150 kg, CrCl > 10-29 mL/min) *Enoxaparin/Lovenox 30 mg SQ BID (WT < 150 kg, CrCl > 30 mL/min) AND *Sequential Compression Device (SCD) Assessment and Plan - Plan This is a 67-year-old male with a history of hypertension. He presents to the emergency department because of abdominal pain which was acute in onset located in the right lower quadrant described as constant severe non-radiating with no precipitating or alleviating factors associated with nausea and vomiting 1. In the emergency department abdominal CT showed hydronephrosis secondary to 5 mm right UVJ kidney stone. Intractable pain secondary to kidney stone. This is resolved has not required analgesia for over 12 hours. Obstructive uropathy secondary to UVJ stone with acute kidney injury. Improved with IV hydration creatinine back to normal. He is nonoliguric. Continue Flomax outpatient follow-up with . Strain all urine. Avoid nephrotoxins including NSAIDs. Uncontrolled hypertension likely secondary to pain. Patient on Norvasc. Add Aldactone. Flomax should help. Outpatient follow-up patient has appointment with PCP this November 03 Bilateral lower extremity edema likely secondary to Norvasc. If worse consider switching Norvasc to another antihypertensive. Aldactone should help DVT prophylaxis with SCD and early ambulation Discharge Planning: Discharge patient to home Condition on discharge: Improved Regular Diet as tolerated Ad Sarah activity no driving Rx written: Aldactone and Flomax Follow-up with primary care physician and
[2017-11-01] MEDS ORDERED: Spironolactone 25 MG Tablet PO SCH (13:00)
[2017-11-01 13:49] VITALS: RESP 20; TEMP 96.6
== END 2017-11-01 13:10 | disposition home or self-care (01) ==
LOC: PHED 18:06 → PHEDA 23:07 → PH3 11-01 00:36
PROVIDERS: ADMIT Internal Medicine; ATTEND Internal Medicine